=== PATIENT | male | born 1970 | race Caucasian/White ===

== ENCOUNTER 2024-08-23 18:56 | Emergency (ER) | payer BC ==
[~2024-08-23] VITALS: Ht 167.6 cm; Wt 93.9 kg
[2024-08-23] MEDS ORDERED: NEXIUM40 MG PO (19:08)
[2024-08-23] MEDS ORDERED: Tetracaine Hydrochloride 0.5% 4 ML BOT OPH ONE (19:20)
[2024-08-23] MEDS ORDERED: LISSAMINE GREEN 1.5 MG STRIP OP ONE (19:25)
[2024-08-23] MEDS ORDERED: Dexamethasone/Tobramycin OPHTHALMIC 2.5 ML BOTTLE OPH ONE (19:45)
== END 2024-08-23 20:06 | disposition home or self-care (01) ==
LOC: ED 18:56
DX: S05.02XA Injury of conjunctiva and corneal abrasion without foreign body, left eye, initial encounter (principal); K21.9 Gastro-esophageal reflux disease without esophagitis; Z88.8 Allergy status to other drugs, medicaments and biological substances; Z91.040 Latex allergy status; Z79.899 Other long term (current) drug therapy; W22.8XXA Striking against or struck by other objects, initial encounter; Y93.89 Activity, other specified; Y92.009 Unspecified place in unspecified non-institutional (private) residence as the place of occurrence of the external cause; Y99.8 Other external cause status